=== PATIENT | female | born 1995 | race Caucasian/White ===

== ENCOUNTER 2017-11-06 21:11 | Emergency (ER) | payer OTHER ==
[~2017-11-06] VITALS: Ht 160 cm; Wt 59.0 kg
[~2017-11-06 21:11] MED LIST: ALBU90OI INH; ALBU90OI6 INH; AMOX500 PO; AZIT250 PO; BCP; BUPR150ER PO; Bactrim Ds Tab1 EACH PO; CELE200 PO; CEPH250SUA PO; CIPR500 PO; CITA20 PO; Crutch1 EACH MISC; DIAZ2 PO; DIPH50 PO; DOXY100 PO; DULO60 PO; FAMO20 PO; GUAI600T33 PO; HYDACE5 PO; HYDCOR1TO TOP; HYDPAM25 PO; IBUP400 PO; IBUP600 PO; IBUP800 PO; KETO10 PO; MEDICAL MARIJUANA; MEDR10 PO; META800 PO; METPRE4DP PO; MONT5TCH PO; MULVITMINE PO; NAPR500 PO; NAPR550 PO; NORETHTP TOP; Naprosyn500 MG PO; OXYACE5T PO; OXYC10ER PO; OXYC10TA19 PO; OXYC5 PO; PRED20 PO; PREN-16 PO; PROACE100 PO; PROCODE120 PO; PROM25 PO; Percocet 5-3251 EACH PO; Permethrin60 GM TP; Prednisone20 MG PO; QUETIAPINE FUMA50 MG PO; RANI150 PO; RXCEPH250S PO; RXPROCODSY PO; RXTRAM50 PO; SERT100 PO; SULTRIDS PO; SULTRIEL PO; TRAM50 PO; TRAZ50 PO
[2017-11-06 21:59] LABS: BASOPHILS ABSOLUTE AUTO 0.04 K/mm3 (0.00-0.23); BASOPHILS PERCENT AUTO 0 % (0-2); EOSINOPHILS ABSOLUTE AUTO 0.04 K/mm3 (0.00-0.68); EOSINOPHILS PERCENT AUTO 0 % (0-6); Hematocrit 43.9 % (33.0-51.0); Hemoglobin 14.5 g/dL (11.5-16.0); IMMATURE GRAN ABSOLUTE AUTO 0.03 K/mm3 (0.00-0.10); IMMATURE GRAN PERCENT AUTO 0 % (0-1); LYMPHOCYTES ABSOLUTE AUTO 1.88 K/mm3 (0.84-5.20); LYMPHOCYTES PERCENT AUTO 16 % (21-46); MONOCYTES ABSOLUTE AUTO 1.22 K/mm3 (0.16-1.47); MONOCYTES PERCENT AUTO 10 % (4-13); Mean Corpuscular HGB 31.9 pg (26.0-34.0); Mean Corpuscular Volume 97 fL (80-100); Mean Platelet Volume 9.3 fL (9.1-12.4); NEUTROPHILS ABSOLUTE AUTO 8.63 K/mm3 (1.96-9.15); NEUTROPHILS PERCENT AUTO 73 % (41-73); Platelet Count 247 K/mm3 (150-400); RDW Coefficient Variation 12.6 % (11.7-14.2); RDW Standard Deviation 45.2 fL (35.1-46.3); Red Blood Cell Count 4.54 M/mm3 (3.80-5.20); White Blood Cell Count 11.84 K/mm3 (4.00-11.30)
[2017-11-06 22:18] LABS: Alanine Aminotransfer (ALT/SGP 33 U/L (12-78); Albumin, Blood 3.8 g/dL (3.4-5.0); Albumin/Globulin Ratio 0.8 (0.8-1.8); Alk Phos 100 U/L (50-136); Anion Gap 11 mmol/L (6-16); Aspartate Aminotrans (AST/SGOT 17 U/L (12-37); Bilirubin, Total 0.8 mg/dL (0.1-1.0); Blood Urea Nitrogen 8 mg/dL (8-24); Bun/Creatinine Ratio 9.8 (12.0-20.0); CO2, Blood 22 mmol/L (21-32); Calcium, Blood 9.4 mg/dL (8.5-10.1); Chloride, Blood 103 mmol/L (98-108); Creatinine, Blood 0.81 mg/dL (0.40-1.00); Globulin, Blood 4.6 g/dL (2.2-4.0); Glomerular Filtration Rate >60 (60-); Glucose, Blood 93 mg/dL (70-99); Potassium, Blood 4.2 mmol/L (3.5-5.5); Sodium, Blood 136 mmol/L (136-145); Total Protein, Blood 8.4 g/dL (6.4-8.2)
== END 2017-11-06 23:06 | disposition left against medical advice (07) ==
LOC: ER 21:11
PROVIDERS: Emergency Medicine
DX: Z53.21 Procedure and treatment not carried out due to patient leaving prior to being seen by health care provider (principal)
CPT/HCPCS: 36415; 80053; 83690; 85025; 99283

== ENCOUNTER 2018-03-16 16:24 | Emergency (ER) | payer OTHER ==
[~2018-03-16] VITALS: Ht 160 cm; Wt 56.2 kg
[2018-03-16] MEDS ORDERED: KETO10 PO (17:01)
== END 2018-03-16 17:57 | disposition home or self-care (01) ==
LOC: ER 16:24
DX: S01.01XA Laceration without foreign body of scalp, initial encounter (principal); F41.9 Anxiety disorder, unspecified; F32.9 Major depressive disorder, single episode, unspecified; J45.909 Unspecified asthma, uncomplicated; D64.9 Anemia, unspecified; F17.200 Nicotine dependence, unspecified, uncomplicated; Z88.5 Allergy status to narcotic agent; Z88.0 Allergy status to penicillin; Z91.040 Latex allergy status; Z88.8 Allergy status to other drugs, medicaments and biological substances; Z79.899 Other long term (current) drug therapy; W06.XXXA Fall from bed, initial encounter
CPT/HCPCS: 12032; 99282-25

== ENCOUNTER 2018-09-14 09:39 | Emergency (ER) | payer OTHER ==
[~2018-09-14] VITALS: Ht 160 cm; Wt 63.5 kg
[2018-09-14] MEDS ORDERED: Pepcid20 MG PO (10:33)
[2018-09-14] MEDS ORDERED: Prednisone20 MG PO (10:33)
[2018-09-14] MEDS ORDERED: BENADRYL25 MG PO (10:33)
== END 2018-09-14 10:46 | disposition home or self-care (01) ==
LOC: ER 09:39
DX: L50.9 Urticaria, unspecified (principal); Z88.5 Allergy status to narcotic agent; Z88.8 Allergy status to other drugs, medicaments and biological substances; Z88.0 Allergy status to penicillin; Z91.040 Latex allergy status; Z79.899 Other long term (current) drug therapy; F32.9 Major depressive disorder, single episode, unspecified; F41.9 Anxiety disorder, unspecified; D64.9 Anemia, unspecified; Z87.891 Personal history of nicotine dependence
CPT/HCPCS: 99282; J7512; Q0163

== ENCOUNTER 2018-09-25 10:29 | Emergency (ER) | payer OTHER ==
[~2018-09-25] VITALS: Ht 162.6 cm; Wt 63.5 kg
[~2018-09-25 10:29] MED LIST changes: +BENADRYL25 MG PO; +Pepcid20 MG PO
== END 2018-09-25 12:16 | disposition home or self-care (01) ==
LOC: ER 10:29
DX: L02.414 Cutaneous abscess of left upper limb (principal); F41.9 Anxiety disorder, unspecified; F32.9 Major depressive disorder, single episode, unspecified; Z87.891 Personal history of nicotine dependence
CPT/HCPCS: 10060; 99283-25

== ENCOUNTER 2020-02-06 11:38 | Emergency (ER) | payer OTHER ==
[~2020-02-06] VITALS: Ht 160 cm; Wt 61.2 kg
[2020-02-06] MEDS ORDERED: IBUP600 PO (13:27)
== END 2020-02-06 13:46 | disposition home or self-care (01) ==
LOC: ER 11:38
DX: S60.221A Contusion of right hand, initial encounter (principal); F17.210 Nicotine dependence, cigarettes, uncomplicated; Z88.0 Allergy status to penicillin; Z88.1 Allergy status to other antibiotic agents; W22.8XXA Striking against or struck by other objects, initial encounter
CPT/HCPCS: 29125; 73130; 99283-25

== ENCOUNTER → 2021-01-19 | Outpatient (CLI) | payer OTHER | END | disposition home or self-care (01) | LOC: LAB SHORT 17:14 → LAB 17:14 | DX: L02.511 Cutaneous abscess of right hand (principal) | CPT/HCPCS: 87070; 87075; 87077; 87147; 87186; 87205 ==

== ENCOUNTER → 2021-02-20 | Outpatient (CLI) | payer OTHER | END | disposition home or self-care (01) | LOC: LAB 18:16 → LAB SHORT 18:16 | DX: N12 Tubulo-interstitial nephritis, not specified as acute or chronic (principal); R10.9 Unspecified abdominal pain | CPT/HCPCS: 87077; 87086; 87186 ==

== ENCOUNTER → 2021-02-27 | Outpatient (CLI) | payer OTHER | END | disposition home or self-care (01) | LOC: LAB SHORT 18:38 | DX: L02.415 Cutaneous abscess of right lower limb (principal) | CPT/HCPCS: 87070; 87075; 87077; 87147; 87186; 87205 ==

== ENCOUNTER 2024-02-03 00:52 | Emergency (ER) | payer OTHER ==
[~2024-02-03] VITALS: Ht 160 cm; Wt 63.5 kg
[~2024-02-03 00:52] MED LIST changes: +BACTRIM DS TAB1 EAC1 PO; +Cleocin HCl150 MG PO
[2024-02-03] MEDS ORDERED: Ibuprofen 600 MG Tab PO ONE (01:55)
[2024-02-03] MEDS ORDERED: Acetaminophen 325 MG TABLET PO ONE (01:55)
[2024-02-03 04:48] VITALS: BP 100/59
[2024-02-03] MEDS ORDERED: OxyCODONE HCL 5 MG TAB PO ONE (05:30)
[2024-02-04] MEDS ORDERED: CEPH500 PO (22:53)
== END 2024-02-03 06:43 | disposition left against medical advice (07) ==
LOC: ER 00:52
DX: S81.842A Puncture wound with foreign body, left lower leg, initial encounter (principal); W34.010A Accidental discharge of airgun, initial encounter; J45.909 Unspecified asthma, uncomplicated; F41.9 Anxiety disorder, unspecified; F32.A Depression, unspecified; Z88.0 Allergy status to penicillin; Z88.1 Allergy status to other antibiotic agents; Z79.899 Other long term (current) drug therapy; Z87.891 Personal history of nicotine dependence
CPT/HCPCS: 73562-LT; 73700; 99284-25; A9270

== ENCOUNTER 2024-02-04 18:20 | Emergency (ER) | payer OTHER ==
[~2024-02-04] VITALS: Ht 162.6 cm; Wt 68.0 kg
[2024-02-04 20:41] VITALS: BP 122/79
[2024-02-04] MEDS ORDERED: CEPH500 PO (22:53)
== END 2024-02-04 23:26 | disposition home or self-care (01) ==
LOC: ER 18:20
DX: S81.042A Puncture wound with foreign body, left knee, initial encounter (principal); M79.5 Residual foreign body in soft tissue; J45.909 Unspecified asthma, uncomplicated; G47.00 Insomnia, unspecified; W34.010A Accidental discharge of airgun, initial encounter; Z59.00 Homelessness unspecified; Z87.891 Personal history of nicotine dependence; Z79.899 Other long term (current) drug therapy; Z88.1 Allergy status to other antibiotic agents
CPT/HCPCS: 73706; 99283-25; Q9967

== ENCOUNTER 2024-02-07 06:34 | Day surgery (SDC) | payer OTHER ==
[~2024-02-07] VITALS: Ht 162.6 cm; Wt 86.4 kg
[~2024-02-07 06:34] MED LIST changes: +CEPH500 PO; +CeFAZolin Sodium 2,000 MG VIAL ONE; +Lactated Ringer's 1,000 ML IV ONE; +NS 50 ML IV ONE
[2024-02-07] MEDS ORDERED: Lidocaine 2%-Epineph 1:100000 20 ML MDV ONE (07:02)
[2024-02-07] MEDS ORDERED: propofoL 20 ML IV ONE (07:33)
[2024-02-07] MEDS ORDERED: FentaNYL Citrate 50 MCG/ML 2 ML Injection ONE ×3 (07:33→10:16)
[2024-02-07] MEDS ORDERED: Ondansetron HCl 2 MG / ML 2ML Vial ONE (07:33)
[2024-02-07] MEDS ORDERED: Dexamethasone Sod Phos 10 MG/ML 1ML VIAL ONE (07:33)
[2024-02-07] MEDS ORDERED: Ketorolac Tromethamine 30mg Vial ONE (07:37)
[2024-02-07] MEDS ORDERED: Lactated Ringer's 1,000 ML IV ONE (07:44)
--- NOTE | 2024-02-07 08:12 | NUR ---
02/07/24 0812 Latasha Martinez 1 MG OF EPI (1MG/ML) ADDED TO FIRST BAG OF LR FOR IRREGATION.
--- NOTE | 2024-02-07 10:03 | NUR ---
02/07/[address] IN SDU 7, D/T ISOLATION.
[2024-02-07] MEDS ORDERED: OxyCODONE HCL 5 MG TAB ONE (10:37)
[2024-02-07 10:47] VITALS: BP 100/65
--- NOTE | 2024-02-07 11:36 | NUR ---
02/07/24 Dhara Marie PT RECEIVED A TOTAL OF 50MCG OF FENTANYL IV, PUSHED SLOWLY, PT STATED THAT HER PAIN IS A 9/10. YANIQUE Wright, ADMINISTERED 5MG OF PO OXYCODONE TO PT. PT AT A COMFORTABLE LEVE, STATING THAT HER PAIN IS AT A 6/10, WHICH WAS HER ACCEPTABLE LEVEL OF PAIN BEFORE LEAVING THE HOSPITAL. YANIQUE Pina, CALLED DR. MILLS TO GET A LETTER FOR PT THE PT NEEDED A LETTER TO GET BACK INTO THE [facility]. PT WILL P/U LETTER AT DR. MILLS OFFICE BEFORE GOING TO THE [facility]. NO C/O NAUSEA. PT ABLE TO TOLERATE FLUIDS AND FOOD JUST FINE. VSS. PT WEIGHT BEARING TOLERATED. PT EDUCATION PROVIDED AND ALL QUESTIONS WERE ANSWERED AND CONCERNS ADDRESSED. PT ABLE TO VOID AFTER LEAVING THE FACILITY.
== END 2024-02-07 11:28 | disposition home or self-care (01) ==
LOC: ORSCSDS 06:34
PROVIDERS: Orthopaedic Surgery
PROC: 0SCD0ZZ Extirpation of Matter from Left Knee Joint, Open Approach (ICD-10-PCS; principal; 2024-02-07 07:30)
PROC: 0SJD4ZZ Inspection of Left Knee Joint, Percutaneous Endoscopic Approach (ICD-10-PCS; principal; 2024-02-07 07:30)
DX: M79.5 Residual foreign body in soft tissue (principal); W45.8XXA Other foreign body or object entering through skin, initial encounter; W34.010A Accidental discharge of airgun, initial encounter; F17.210 Nicotine dependence, cigarettes, uncomplicated; J45.909 Unspecified asthma, uncomplicated; K21.9 Gastro-esophageal reflux disease without esophagitis; Z79.899 Other long term (current) drug therapy
CPT/HCPCS: 87070; 87075; 87205; A9270; J0690; J1100; J1885; J2405; J2704; J3010; J7120

== ENCOUNTER 2024-05-04 04:57 | Day surgery (SDC) | payer OTHER ==
[~2024-05-04 04:57] MED LIST changes: +CLIN300 PO; -CeFAZolin Sodium 2,000 MG VIAL ONE; -Lactated Ringer's 1,000 ML IV ONE; -NS 50 ML IV ONE
== END 2024-05-04 23:15 | disposition home or self-care (01) ==
LOC: WOUND 04:57
DX: L03.114 Cellulitis of left upper limb (principal); J45.909 Unspecified asthma, uncomplicated; Z88.1 Allergy status to other antibiotic agents
CPT/HCPCS: G0463

== ENCOUNTER 2024-05-11 03:10 | Day surgery (SDC) | payer OTHER ==
[2024-05-11] MEDS ORDERED: Lidocaine HCl 4% Cream 5 GM ONE (10:38)
== END 2024-05-11 23:00 | disposition home or self-care (01) ==
LOC: WOUND 03:10
DX: L03.114 Cellulitis of left upper limb (principal)
CPT/HCPCS: A9270; G0463

== ENCOUNTER 2024-05-20 01:29 | Day surgery (SDC) | payer OTHER ==
[2024-05-20] MEDS ORDERED: Lidocaine HCl 4% Cream 5 GM ONE (09:50)
== END 2024-05-20 23:00 | disposition home or self-care (01) ==
LOC: WOUND 01:29
DX: L03.114 Cellulitis of left upper limb (principal)
CPT/HCPCS: A9270

== ENCOUNTER 2024-05-25 04:32 | Day surgery (SDC) | payer OTHER | END 2024-05-25 23:00 | disposition home or self-care (01) | LOC: WOUND 04:32 | DX: L03.114 Cellulitis of left upper limb (principal); L89.029 Pressure ulcer of left elbow, unspecified stage | CPT/HCPCS: G0463 ==

== ENCOUNTER 2024-06-01 04:04 | Day surgery (SDC) | payer OTHER | END 2024-06-01 23:00 | disposition home or self-care (01) | LOC: WOUND 04:04 | DX: L03.114 Cellulitis of left upper limb (principal) | CPT/HCPCS: G0463 ==

== ENCOUNTER 2024-06-08 06:17 | Day surgery (SDC) | payer OTHER ==
[2024-06-08] MEDS ORDERED: Silver Nitr/Potassium Nitrate 1 EA APPL ONE (10:14)
== END 2024-06-08 23:00 | disposition home or self-care (01) ==
LOC: WOUND 06:17
DX: L03.114 Cellulitis of left upper limb (principal); L89.029 Pressure ulcer of left elbow, unspecified stage
CPT/HCPCS: A9270

== ENCOUNTER 2024-06-15 06:18 | Day surgery (SDC) | payer OTHER | END 2024-06-15 23:00 | disposition home or self-care (01) | LOC: WOUND 06:18 | DX: L03.114 Cellulitis of left upper limb (principal); L89.029 Pressure ulcer of left elbow, unspecified stage | CPT/HCPCS: G0463 ==

== ENCOUNTER 2024-06-22 00:59 | Day surgery (SDC) | payer OTHER | END 2024-06-22 23:00 | disposition home or self-care (01) | LOC: WOUND 00:59 | DX: L03.114 Cellulitis of left upper limb (principal); S51.802D Unspecified open wound of left forearm, subsequent encounter; X58.XXXD Exposure to other specified factors, subsequent encounter | CPT/HCPCS: G0463 ==

== ENCOUNTER 2024-09-10 17:08 | Emergency (ER) | payer OTHER ==
[~2024-09-10] VITALS: Ht 167.6 cm; Wt 83.9 kg
[2024-09-10 17:35] VITALS: BP 128/91
[2024-09-10] MEDS ORDERED: ALBU90OI INH (17:38)
[2024-09-10] MEDS ORDERED: Amoxicillin875 MG PO (17:38)
== END 2024-09-10 17:40 | disposition home or self-care (01) ==
LOC: ER 17:08
DX: H66.92 Otitis media, unspecified, left ear (principal)
CPT/HCPCS: 99282